=== PATIENT | female | born 1995 | race Caucasian/White ===

== ENCOUNTER 2022-01-26 08:00 | Outpatient (RCR) | payer OTHER, SELFPAY ==
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
--- NOTE | 2022-01-26 11:00 | BH.SGPN.GN ---
Behaviors/Verbalizations/Mental Status: []Pt alert and oriented, casually dressed and groomed. Eye contact good. Motor activity appropriate. Speech within normal limits. Affect constricted, mood depressed. Thoughts linear, logical, no signs of hallucinations or delusions. Client Response/Progress/Benefit: []Pt responded well to session as evidenced by Pt listening attentively to others and providing strategies during discussion.? Pt identified personal warning signs for crisis and gained further awareness of earliest warning signs. Pt created a crisis action plan to help Pt better manage warning signs for crisis. Pt?s action plan included warning signs such as racing thoughts, not taking care of responsibilities, and increased risk taking. Pt?s coping skills included 5-senses, going for walks, washing her face, breaking things down into ?extremely small steps? and writing out the pros and cons. Pt appeared to benefit from creating a crisis action plan and increasing self-awareness. Pt to continue IOP tx to prevent decompensation, increase use of healthy coping skills, and improve overall functioning. Narrative Note: []
[2022-01-26 11:20] VITALS: BP 138/80; PULSE 63
--- NOTE | 2022-01-26 12:39 | BH.DR.ITP ---
Initial Treatment Plan Patient Information Visit Information: ADMISSION DATE: EXPECTED LOS: 4-6 weeks Problems/Symptoms Problem #1:: Mood instability Symptom:: Sadness, irritability, bereavement, hopelessness, worthlessness, hypersomnia, low energy, decreased concentration, guilt, recent passive thoughts of , Problem #2:: Anxiety Symptom:: Worry, rumination, panic attacks, flashbacks, reexperiencing, hypervigilance
--- NOTE | 2022-01-27 10:15 | BH.SGPN.GN ---
Behaviors/Verbalizations/Mental Status: []Pt alert and oriented, neatly dressed and groomed. Eye contact good. Motor activity appropriate. Speech within normal limits. Affect constricted, mood depressed. Thoughts linear, logical, no signs of hallucinations or delusions. Client Response/Progress/Benefit: []Pt responded well to session AEB contributing to discussion, taking notes, and listening attentively to others. Group discussed the benefits of managed anger and anger as a secondary emotion. Pt shared perspective on negatives from acting out in anger as stress and more mental health issues.? Pt completed anger iceberg worksheet, reporting outward personal signs of anger as being sarcastic and yelling. Identified underlying emotions that contribute to anger including confusion, guilt, and insecurity. ?Appeared to benefit from increased knowledge of the underlying emotions that impact anger and increased self-awareness of the internal and external consequences of anger. Will continue IOP tx to prevent decompensation, improve overall functioning, and reduce the use of unhealthy coping skills. Narrative Note: []
--- NOTE | 2022-01-28 15:48 | BH.MDN ---
Multi-Disciplinary Note - Note 60-min Individual Time Started:: 09:30 Date: 01/28/22 Time Stopped:: 10:30
--- NOTE | 2022-01-31 09:10 | BH.SGPN.GN ---
Behaviors/Verbalizations/Mental Status: []Pt alert and oriented, casually dressed and groomed, appearing unbathed. Eye contact fair to good. Motor activity appropriate. Speech within normal limits. Affect constricted, mood depressed. Thoughts linear, logical, no signs of hallucinations or delusions. Reviewed pt?s symptom tracker, no risk for suicidal ideation, plan, or intent as of 01/31/22. Client Response/Progress/Benefit: []Pt responded well to session AEB pt sharing thoughts and feelings, as well as listening attentively to others. Pt stated current mental health wins include working at a [employer] over the weekend and talking with her brother. Pt went on to indicate struggling with the grieving process over the past month and that it was helpful to speak with her brother about this as they do not usually discuss emotions. Shared that self-care has been difficult to make time for as she aids her family in making arrangements. Discussed trying to spend more time on mindfulness. Progress noted with pt reporting improved awareness and skill application. Pt to continue IOP to increase healthy decision making, stabilize mood, and prevent decompensation. Narrative Note: []
--- NOTE | 2022-01-31 10:10 | BH.SGPN.GN ---
Behaviors/Verbalizations/Mental Status: []Client alert and oriented, casually dressed and groomed. Eye contact fair. Motor activity appropriate. Speech within normal limits. Affect congruent, mood euthymic. Thoughts linear, logical, no signs of hallucinations or delusions. Client Response/Progress/Benefit: []Client receptive to session AEB contributing to discussion and listening attentively to others. Taking notes. Worked with group to brainstorm the positive and negative aspects of stress on physical and mental health. Group did well to identify the benefits of stress as well as the impact of distress on performance and mental health. Client identified their personal top stressors as: being supportive to family while grieving brother's , questioning of medications, and feeling distanced from people in her life. Client reports when the stress overflows client reacts with irritability and avoidance by throwing self into unrelated topics to distract self from what needs done. Client seemed to benefit from increased awareness of current stressors and impact stress has on mental health. Recommended to continue IOP tx to stabilize moods, increase confidence and prevent decompensation.
--- NOTE | 2022-01-31 11:20 | BH.SGPN.GN ---
Behaviors/Verbalizations/Mental Status: []Pt alert and oriented, casually dressed and groomed. Eye contact good. Motor activity appropriate. Speech within normal limits. Affect congruent, mood calm. Thoughts linear, logical, no signs of hallucinations or delusions. Client Response/Progress/Benefit: []Pt participated at times during group discussions. Attentive during psychoeducation on the 4 A's of Coping with Stress (Avoid, Alter, Adapt, Accept). Participated in experiential activity in which group members had to utilize stress management skills in the moment. Pt did well to problem-solve and express ideas to peers. Pt engaged in review of the 4 A?s and picked wanting to work on adapting how she views success and challenge her expectations of self. Benefited from processing in the moment stress management strategies and identifying new ways to cope with stress. Will continue in IOP tx to prevent decompensation, increase healthy boundaries and use of healthy coping skills, and improve mood stability. Narrative Note: []
--- NOTE | 2022-02-02 09:11 | BH.COMM ---
Communication Note - Communication with Client Communication Note: Client called to reschedule IOP from today to tomorrow.
--- NOTE | 2022-02-03 09:05 | BH.SGPN.GN ---
Behaviors/Verbalizations/Mental Status: [] Eye contact is good. Motor activity is appropriate. Appearance is casual. Speech is Appropriate. Mood is depressed. Affect is flat. Thoughts are linear and logical. No evidence of psychosis. Reviewed daily check in sheet and pt reports 1/5 for suicidal thoughts and 1/5 for intent. Client Response/Progress/Benefit: [] Pt participated when prompted. Attentive. Daily symptom tracker notes 4/5 for depression, 3/5 for anxiety. 3/5 for anger, and 2/5 for self-harm urges. Pt reports that she feels ?disconnected today?. Mental health win was ?taking time to get to know? a support in her life. She has been avoiding certain people, not b/c they are unhealthy, but rather b/c seeing them reminds her of her recently brother. She did not elaborate much on what is causing her to feel disconnected however reports being overwhelmed with a great deal of emotions. Benefited from group support, encouragement, and feedback. Will continue in IOP to maintain safety, stabilize mood, and prevent decompensation. Narrative Note: []
--- NOTE | 2022-02-03 10:10 | BH.SGPN.GN ---
Behaviors/Verbalizations/Mental Status: []Pt alert and oriented, neatly dressed and groomed. Eye contact good. Motor activity appropriate. Speech within normal limits. Affect congruent, mood dysthymic Thoughts linear, logical, no signs of hallucinations or delusions. Client Response/Progress/Benefit: []Pt responded well to session AEB taking notes throughout and listening attentively to others. Pt was attentive throughout group activity identifying famous individuals and how they overcame failure to be successful. Pt helped group identify how fear of failure can impact mental health and relationships. Pt personally identified it leads to avoiding putting her art out into the world and finishing school. Pt participated in experiential activity and pt made the connect of progress requiring re-evaluating and working with supports. Appeared to benefit from increased knowledge of fear of failure. ?Will continue IOP tx to prevent decompensation, improve overall functioning, and gain healthy supports. Narrative Note: []
--- NOTE | 2022-02-03 11:10 | BH.SGPN.GN ---
Behaviors/Verbalizations/Mental Status: []Pt alert and oriented, neatly dressed and groomed. Eye contact good. Motor activity appropriate. Speech within normal limits. Affect constricted, mood depressed. Thoughts linear, logical, no signs of hallucinations or delusions. Client Response/Progress/Benefit: []Pt responded well to session, engaged in the experiential activity and attentive throughout group processing. Pt reported fear of failure has kept pt from finishing school and putting her art out into the world. Pt completed fear of failure worksheet and was able to identify thoughts and behaviors that reinforce personal fear of failure including procrastinating, negative views of self, and distorted thinking patterns. Pt participated in small group discussion regarding strategies to overcome fear of failure. Identified wanting to work on getting an outside perspective ?either from myself or others? to combat shame and negative thinking. Appeared to benefit from increased knowledge of strategies to combat fear of failure and gaining self-awareness. Pt will continue IOP tx to prevent decompensation, increase healthy supports, and increase self-confidence. Narrative Note: []
--- NOTE | 2022-02-03 20:46 | BH.MDN ---
Multi-Disciplinary Note - Note 60-min Individual Time Started:: 12:15 Date: 02/03/22 Purpose of session/treatment goals addressed:: Purpose of session was to address goals 1 and 2 from MTP. Eye Contact:: Fair Motor Activity:: Restless Appearance:: Casual Speech:: Appropriate, Tangential - at times Mood:: Anxious, Other - tearful at times Affect:: Congruent Thoughts:: Logical, Racing - at times, No evidence of hallucinations/delusions noted Staff Interventions:: thought challenging, psychoeducation on: - addiction, CBT techniques, mindfulness skills, strengths perspective, goal setting, taught coping skills Client Response:: Client reported overall her week has been going well. Client stated she continues to struggle with feeling guilty about doing things for herself. Client reported she did go on a walk and tried to be more mindful and in the moment. Stated she didn't feel guilty when she went on a walk at her parents house. However, she stated there were a couple times she had thought about doing things she wanted but didn't because felt like she should hang out with her boyfriend. Client reported she wants to keep working on being able to do things that she likes independently without feeling guilty. Client shared continues to have worries about if her boyfriend will maintain sobriety once he is no longer required to have drug tests and be on curfew due to recent legal issues. Client connected with psychoeducation about addiction. With therapist assistance able to challenge distorted thoughts it was her fault her boyfriend had been using drugs and that it's her responsibility to keep him from overdosing. Discussed importance of taking time to Time Stopped:: 13:10
--- NOTE | 2022-02-04 10:00 | BH.SGPN.GN ---
Behaviors/Verbalizations/Mental Status: [] Eye contact is good. Motor activity is appropriate. Appearance is casual. Speech is Appropriate. Mood is depressed. Affect is congruent. Thoughts are linear and logical. No evidence of psychosis. Client Response/Progress/Benefit: [] Pt participated at times during the group discussion. Attentive during psychoeducation. Active during experiential activity. Participated during interactive discussion on aspects of fixed mindset. Group identified several aspects of fixed mindset which included; inflexible, belief that one cannot grow, absolute thinking, and all of one's skills, traits, and behaviors are set in stone and can't change. Group then identified examples of fixed thinking which included; Im never going to get better, I'm always going to be like this, I'm going to fail, I'm broken and will always be like this. Pt did well in experiential activity in which they were given a seemingly impossible task and were asked to identify fixed thoughts that arose. Benefited from increased understanding of fixed mindsets and how they can impact mental health. Will continue in IOP to prevent decompensation, increase healthy coping, and stabilize mood. Narrative Note: []
--- NOTE | 2022-02-04 15:57 | BH.MDN ---
Multi-Disciplinary Note - Note 30-min Individual Time Started:: 11:30 Time Stopped:: 12:00
--- NOTE | 2022-02-07 10:10 | BH.SGPN.GN ---
Behaviors/Verbalizations/Mental Status: []Client alert and oriented, neatly dressed and groomed. Eye contact good. Motor activity appropriate. Speech normal. Affect congruent, mood anxious and depressed, Thoughts linear, logical, no signs of hallucinations or delusions. Client Response/Progress/Benefit: []Client responded well to session AEB client listening attentively to others and providing input during group discussion on the pay offs and costs of the different communication styles. Client recognizes negative impact on her mood and ability to self regulate when she doesn't use healthy communication style. Client did well in the activity to be assertive and provide suggestions to the group. Recognizes if group couldn?t actively listen to one another in the activity, they wouldn?t have been successful. Attentive during psychoeducation on interpersonal DBT skill [place]. Client set a goal to work on being more mindful with goal of trying to remain mindful of her priorities in a situation or discussion. Client seemed to benefit from increasing awareness of healthy strategies to improve communication. Client will continue IOP tx to improve successful communication, regulate emotions, and prevent decompensation. Narrative Note: []
--- NOTE | 2022-02-07 15:58 | BH.MDN ---
Multi-Disciplinary Note - Note 60-min Individual Time Started:: 12:15 Date: 02/07/22 Time Stopped:: 13:15
--- NOTE | 2022-02-09 09:02 | BH.SGPN.GN ---
Behaviors/Verbalizations/Mental Status: []Pt alert and oriented, casually dressed and groomed. Eye contact good. Motor activity appropriate. Speech within normal limits. Affect congruent, mood euthymic. Thoughts linear, logical, no signs of hallucinations or delusions. Reviewed pt?s symptom tracker, risk for suicidal ideation reported as 1/5 which is within pt baseline, denies plan, or intent as of 02/09/22 Client Response/Progress/Benefit: []Pt responded well to session, attentive and reports connecting with feedback from supports throughout. Pt reports feeling ?suspended this morning as pt shared she worried about her boyfriend?s upcoming court date. Shared struggling with ruminating thoughts related to this but was able to catch herself and challenge them. Indicated this as progress, as in the past she would allow herself to spiral into negativity. Identified going to the [employer] as an additional win. Pt appeared to benefit from support of the group environment. Pt to continue IOP tx to continue to improve stress management skills, reduce depression, and further improve mood stability. Narrative Note: []
--- NOTE | 2022-02-09 10:10 | BH.SGPN.GN ---
Behaviors/Verbalizations/Mental Status: []Pt alert and oriented, neatly dressed and grooming appears tended to. Eye contact good. Motor activity appropriate. Speech within normal limits. Affect constricted, mood dysthymic. Thoughts linear, logical, no signs of hallucinations or delusions. Client Response/Progress/Benefit: []Pt engaged throughout AEB taking notes, listening attentively, and providing input throughout. Attentive during psychoeducation and discussed the importance of goal-setting with the group. Group identified potential benefits of having goals to include: they motivate, increase self-confidence, promote personal growth, and give direction. Group also worked together to identify barriers to goal-setting which included; high expectations, negative thinking, and lack of motivation. Pt identified personal barriers to include negative thinking and lack of motivation. Benefited from increased awareness of benefits and barriers to goal-setting. Pt will continue in IOP to prevent decompensation, increase self-care, and reduce intensity of symptoms. Narrative Note: []
--- NOTE | 2022-02-09 12:05 | PCM.BH.PN_ITS ---
Progress Note Progress Note: History of Present Illness/Interim History: [] The patient is a 26-year-old single female with a history of bipolar 1 disorder, anxiety disorder, alcohol use disorder (in partial remission x4-month) and methamphetamine use disorder (sober x9 months). I last saw the patient 2 weeks ago and she states that she is feeling better and that her anxiety has decreased in intensity. She says she is having much less panic attacks than before and she says that it is a lot easier for her to drive herself without being too anxious to drive. She states that she still has some intrusive thoughts about maybe her boyfriend is cheating on her but she states that these last only an hour here there and they are less than before and she is aware that they are probably irrational. She also is less irritable. She denies passive thoughts of , suicidal ideation, homicidal ideation, plan for suicide, hallucinations or delusions. She still gets some irritable episodes but they last a few hours only but she is still having them on a regular basis about 4 times per week. She is tolerating her medications well and has no side effects from them except possibly a little fatigue since the Vraylar was started. Current Psychiatric Medications: [Vraylar 1.5 mg p.o. daily after dinner (on this for 8 days); Lamictal 100 mg p.o. daily] Mental Status Examination: [] The patient is a 26-year-old female who appears normal for stated age and is casually dressed and groomed with good hygiene. She is alert and oriented to person place and time and ambulatory with a normal gait. She is cooperative during the interview and has no psychomotor agitation or retardation. Eye contact is good and speech is normal rate and rhythm and fluent without pressure. Mood is somewhat depressed and anxious still. Affect is full and normal. Thought process is goal-directed and organized. Thought content: There is no evidence of passive thoughts of , suicidal ideation, homicidal ideation, hallucinations or delusions or kindra. Reality testing is intact. Intelligence is above average. Judgment is intact. Insight is fair. Impulsivity is moderate. Diagnoses: [] 1. Bipolar 1 disorder, most recent episode depressed, moderate (F31.32) 2. Anxiety disorder, unspecified 3. Remote history of disordered eating 4. Alcohol use disorder in partial remission for 4 months 5. Methamphetamine and crack substance abuse order, sober x9 months 6. Primary support issues Plan: [] The patient will continue the IOP program at [facility] as the structure, support, education and group therapy will hopefully prevent worsening of the patient's symptoms which could require hospitalization. She felt safe during the interview and if it anytime she does not feel safe she will let us know or go to the emergency room. The risks, possible complications side effects and options regarding the meds were discussed with the patient again and she understands and accepts them. She understands that Vraylar and Lamictal may increase the side effects from the medications if they are given together but she has not noticed this and because she is only on 100 mg of Lamictal and a relatively low-dose of Vraylar we will continue to watch but feel that this potential interaction is probably not going to be clinically significant. She will continue to follow-up with her outpatient providers and she agrees to increase her Vraylar to 3 mg p.o. daily in order to get better control of her bipolar disorder. No other medication changes were made. Prescription was sent in for Vraylar 3 mg p.o. daily. I will see the patient in follow-up in 2 weeks or sooner if needed.
--- NOTE | 2022-02-11 09:02 | BH.SGPN.GN ---
Behaviors/Verbalizations/Mental Status: []Eye contact fair, casually dressed, motor activity appropriate, speech normal rate and tone, mood anxious, congruent affect, thoughts linear and intact, no evidence of delusions or hallucinations. Reviewed pt's symptom tracker, no indication of suicidal ideation or intent. Client Response/Progress/Benefit: [] Client respond well to session as evidenced by her listening attentively to others and openly sharing thoughts and feelings. Client identified mental positive as her partner not going to custodial yesterday which has relieved significant stress for her. Client reported she utilized several healthy coping skills to manage her anxiety while in Court waiting for the outcome of her partner's case. Client stated current stressor as continued lingering anxiety and fear about what change will happen since her partner will no longer have certain legal restrictions. Client seemed to benefit from support from peers. Client to continue IOP to stabilize mood, increase confidence, and prevent decompensation. Narrative Note: []
--- NOTE | 2022-02-11 10:10 | BH.SGPN.GN ---
Behaviors/Verbalizations/Mental Status: []Eye contact is good. Motor activity is appropriate. Appearance is casual. Speech is Appropriate. Mood is depressed and anxious. Affect is congruent. Thoughts are linear and logical. No evidence of psychosis. Client Response/Progress/Benefit: []Pt was an active participant in group discussions. Attentive during psychoeducation and participated in interactive discussions in which group defined self-care, discussed the benefits to self-care, and identified common myths surrounding self-care. Pt shared that ?self-care can help you to feel more present and set better boundaries?. Group identified that self-care myths include; self-care is selfish, self-care is just personal hygiene, self-care should be fun, self-care is too time consuming, and I don?t deserve it. Pt and peers broke into smaller group and worked together to bust the myths associated with self-care. Benefited from increased awareness of the self-care and its benefits. Progress noted in increased ability to engage in healthy decision making and reduce unhealthy coping. Will continue in IOP to prevent decompensation, increase emotion regulation skills and mood stability, and improve functioning. Narrative Note: []
--- NOTE | 2022-02-11 17:05 | BH.MDN ---
Multi-Disciplinary Note - Note 60-min Individual Time Started:: 11:30 Date: 02/11/22 Purpose of session/treatment goals addressed:: Purpose of session was to address goals 1 and 2 from MTP. Eye Contact:: Fair Motor Activity:: Restless Appearance:: Casual Speech:: Appropriate Mood:: Anxious, Other - tearful at times Affect:: Congruent Thoughts:: Linear, Logical, No evidence of hallucinations/delusions noted Staff Interventions:: thought challenging, psychoeducation on: - codependency, CBT techniques, mindfulness skills, strengths perspective, goal setting Client Response:: Client reported she is feeling relief today since her boyfriend's court date went very well yesterday. Client stated she is slightly anxious though because he has less restrictions which increases fear he will go back to using drugs. Client receptive to learning about codependency. Client connected with characteristics of codependency and the impact can have on mental health. Client agreed she was trying to control her boyfriends every move out of fear he would overdose. Client stated this constant feeling of wanting to be there to help him led her to engage in self destructive behaviors. Client reported she notes signficant improvement in their relationship now that her boyfriend is sober. Client stated she still is having a difficult time trusting him due to past behaviors. Client recognizes if she can't get to a place in which she trusts him it will be hard for the relationship to move forward in a healthy way. Client connected with concept of detachment in codependent no more book. Client stated she believes current relationship can be healthy and they can stay together if they work on being more independent. Client reported she has been working on her homework of identifying her specific symptoms when she is manic/hypomanic, depressed and stable. Client reported she is having a harder time identifying how she is when stable. Recognizes this could be due to living in chaos for the last couple of years and not feeling very stable. Client stated she hasn't followed through with goal of going on a hike and taking pictures of nature items. Stated she knows she needs to put more effort into being mindful/present and engaging in self-care. Client reported engaging in self-care more consistently will help combat negative thoughts she needs to be doing things with/for other people and feeling selfish for wanting to do things alone. Client stated she will continue to work on handout about bipolar disorder and go on a hike this weekend. Risks/Concerns:: Denies suicidal ideation, plan or intention to date. future focused. Progress Toward Goals/Plan:: Progress noted AEB client reporting improved mood stability and increased use of healthy coping skills. Client continues to struggle with racing thoughts, overthinking, and low confidence/worth. Client often reports feeling guilty for doing things that she wants to do or do things on her own. Client recognizes negative impact this has on her mental health and reports motivation to work on this. Client is to continue IOP to stabilize moods, increase us of mindfulness skills, and prevent decompensation. Time Stopped:: 12:30
--- NOTE | 2022-03-24 10:10 | BH.SGPN.GN ---
Behaviors/Verbalizations/Mental Status: [] Client alert and oriented, casually dressed and groomed. Eye contact good. Motor activity appropriate. Speech within normal limits. Affect congruent, mood content. Thoughts linear, logical, no signs of hallucinations or delusions Client Response/Progress/Benefit: [] Client responded well to session AEB sharing and listening attentively to others. Client was engaged throughout group discussion defining fixed mindset and what it can look like. Group identified several aspects of fixed mindset which included; negative outlook, fear of failing, absolute thinking, and inability to grow your intelligence. Group discussed how fixed mindset affects mental health and why we use fixed thoughts. Client participated in experiential activity encouraging client to find solutions to a seemingly impossible task. Client identified personal fixed thoughts in session which included ?I will always end up self- destructing and I will end up just letting people down.? Client gained insight to how these fixed thoughts reduce motivation and keep client stuck in unhealthy cycles. Client appeared to benefit from increased knowledge of fixed mindset and self-awareness of personal fixed thoughts. Will continue IOP treatment to utilize positive coping skills, identify cognitive distortions and utilize skills to manage symptoms of anxiety. Narrative Note: []
--- NOTE | 2022-03-24 11:10 | BH.SGPN.GN ---
Behaviors/Verbalizations/Mental Status: [] Client alert and oriented, casually dressed and groomed. Eye contact good. Motor activity appropriate. Speech within normal limits. Affect congruent, mood euthymic Thoughts linear, logical, no signs of hallucinations or delusions. Client Response/Progress/Benefit: [] Client engaged during activity and discussion AEB providing some input, connecting with peers, as well as taking notes throughout. Client did well to engage as group worked on identifying characteristics and benefits of adopting a growth mindset. Worked with fellow participants in reframing the example fixed thoughts into growth mindset thoughts. Reframed personal fixed thought of ?I will just end up letting people down? with growth mindset thought of ?I can try again in the future? Benefitted from discussing benefits of growth mindset and brainstorming strategies for prompting growth-mindset. Will continue IOP tx to improve self-care consistency and maintain mood stability. Narrative Note: [] Narrative Note: []
== END 2022-02-11 23:59 ==
LOC: BHIOP 08:00
PROVIDERS: PCP Family Medicine; Referring Provider Psychiatry & Neurology Psychiatry; Visit Provider Psychiatry & Neurology Psychiatry
DX: F31.32 Bipolar disorder, current episode depressed, moderate (principal); F41.9 Anxiety disorder, unspecified; F50.9 Eating disorder, unspecified; F14.11 Cocaine abuse, in remission; F11.11 Opioid abuse, in remission
CPT/HCPCS: S9480; 90832; 90837; 90853

== ENCOUNTER 2022-02-14 09:00 | Outpatient (RCR) | payer OTHER, SELFPAY ==
[2022-02-12 01:48] VITALS: BP 138/80; PULSE 63
--- NOTE | 2022-02-15 09:05 | BH.SGPN.GN ---
Behaviors/Verbalizations/Mental Status: [] Eye contact is good. Motor activity is appropriate. Appearance is casual. Speech is Appropriate. Mood is depressed. Affect is flat. Thoughts are linear and logical. No evidence of psychosis. Reviewed daily check in sheet and pt reports 2/5 for suicidal ideations and 0/5 for intent. Client Response/Progress/Benefit: [] Pt participated at times during the group discussion. Attentive. Daily symptom tracker notes 4/5 for depression and anxiety; 3/5 for anger and self-harm urges. Mental health wins include utilizing skills to work through anxiety producing situation. She discussed the situation and the skills used. Emotion for today is ?heavy? which she states is mainly reported to her depression. Reported side effects from medication which led her to stop her Vraylar last a couple days ago. She reports that since then the side effect has resolved. She admits that she often ?plays doctor? with her medications. Group provided feedback and support. Pt has plans to utilize self-care this afternoon and appears motivated to utilize skills to mange distress. Benefited from group support, encouragement, and feedback. Will continue in IOP to maintain safety, stabilize mood, and improve function. Narrative Note: []
--- NOTE | 2022-02-15 10:05 | BH.SGPN.GN ---
Behaviors/Verbalizations/Mental Status: []Eye contact is good. Motor activity is appropriate. Appearance is casual. Speech is Appropriate. Mood is depressed and anxious. Affect is congruent. Thoughts are linear and logical. No evidence of psychosis. Client Response/Progress/Benefit: []Pt was an active participant in group discussions. Attentive during psychoeducation. Participated with peers in experiential activity. Pt participated in an interactive discussion with peers in which they worked together to define what coping skills are. Group then identified unhealthy coping skills which included; lashing out, negative self-talk, isolating, substance abuse, avoidance, sleeping to escape, and distracting self with other?s problems. Psychoeducation on internal vs external coping skills. After experiential activity pt identified that A strong base of internal and external coping skills is helpful when one of these areas is unavailable or struggling. Benefited from increased awareness and education the benefits of have both internal and external coping skills. Will continue in IOP to maintain safety, prevent decompensation, and to stabilize mood. Narrative Note: []
--- NOTE | 2022-02-15 11:07 | BH.SGPN.GN ---
Behaviors/Verbalizations/Mental Status: []alert and oriented, casually dressed and groomed. Eye contact fair to good. Motor activity appropriate. Speech within normal limits. Affect constricted, mood anxious and depressed. Thoughts linear, logical, no signs of hallucinations or delusions. Client Response/Progress/Benefit: []Pt responded well to session AEB taking notes and providing input and examples throughout. Group discussed the different categories of coping skills which included distraction, emotional release, grounding, self-love, and thought challenging. Pt created a coping skill menu identifying various skills to try in each category. Pt?s coping skill menu included: going outside, earthing, singing, dating ?myself,? and thinking in the [place]ungu[place].? Appeared to benefit from increasing repertoire of healthy coping skills. Pt continues to struggle with grief and managing her negative thinking patterns, but she is consistent and engaged. Pt will continue IOP tx to combat distortions, increase self-care and boundaries, and improve daily functioning. Narrative Note: []
--- NOTE | 2022-02-15 16:37 | BH.MDN ---
Multi-Disciplinary Note - Note 60-min Individual Time Started:: 12:10 Date: 02/15/22 Purpose of session/treatment goals addressed:: Purpose of session was to address goals 1 and 2 from MTP. Eye Contact:: Fair Motor Activity:: Appropriate Appearance:: Casual Speech:: Appropriate Mood:: Anxious Thoughts:: Logical, No evidence of hallucinations/delusions noted Staff Interventions:: thought challenging, CBT techniques, strengths perspective, goal setting, taught coping skills Client Response:: Client reported she stopped taking her Vraylar medications 2 to 3 days ago because noticed it was making her restless and felt the need to constantly move her mouth. Client reported she has noticed since being off the medication her anxiety has increased. Client reported she has been feeling more floaty and spaced out recently. Client reported her lamictal was increased recently and seems to be responding well to that. Client reported having increased stress within relationship. Client stated her boyfriend being off probation has triggered increased anxiety that he will starting using drugs again. Client discussed recent conflict with boyfriend. Discussed with therapist other coping skills that could be used in the moment to manage distress like grounding, walking away, and breathing. Client struggling with negative thought patterns, open to help from therapist to challenge thoughts. Client agreeable to focus on self-care in the next couple of days. Risks/Concerns:: Denies suicidal thoughts, plan or intention to date. feels able to maintain safety. Progress Toward Goals/Plan:: Client reporting increase in anxiety since stopping one of her medications. Also noted increased in depression which could be attributed to recent interpersonal relationship stressor. Client is continuing to have a difficult time with managing negative thought patterns and anger. Client to continue IOP to increase consistent use of healthy coping, challenge distorted thoughts, and prevent decompensation. Time Stopped:: 13:05
--- NOTE | 2022-02-17 10:10 | BH.SGPN.GN ---
Behaviors/Verbalizations/Mental Status: []Pt alert and oriented, casually dressed and hair was unkempt. Eye contact good. Motor activity appropriate. Speech within normal limits. Affect constricted, mood depressed. Thoughts linear, logical, no signs of hallucinations or delusions. Client Response/Progress/Benefit: []Pt was an active participant AEB contributing to discussion, taking notes, and engaging in group activity. Connected with the topic of pitfalls and listened to group discussion on barriers that prevent from choosing a healthier path to mental wellness. Group worked together to identify examples of personal pitfalls which included; resentment/anger, shutting down, low motivation, making excuses, denial, distortions, and unhealthy coping. Pt identified negative thinking and not taking medications as personal pitfalls that have inhibited progress in the past. Pt benefited from group as pt learned to better identify potential barriers to improving mental health symptoms. Pt will continue IOP tx to prevent decompensation, improve mood stability, and increase self-compassion. Narrative Note: []
--- NOTE | 2022-02-17 17:26 | BH.MDN ---
Multi-Disciplinary Note - Note 60-min Individual Time Started:: 11:25 Date: 02/17/22 Purpose of session/treatment goals addressed:: Purpose of session was to address goals 1 and 2 from MTP. Eye Contact:: Fair Motor Activity:: Appropriate, Restless - at times Appearance:: Casual Speech:: Appropriate Mood:: Anxious Affect:: Congruent Thoughts:: Linear, Logical, No evidence of hallucinations/delusions noted Staff Interventions:: thought challenging, CBT techniques, mindfulness skills, strengths perspective, goal setting, other - relationship issues Client Response:: Client responded well to session AEB openly sharing thoughts and feelings. Client reported the last couple of days she has noticed her feelings are not ruling her conversations as frequently. Client stated she has been doing better with communicating to her boyfriend what she needs instead of allowing anger to rule the conversation. Client stated she is still having an odd sensation that she needs to lay down out of fear she is going to pass out or have a medical emergency. Client reported she does think her anxiety is impacting this feeling. Client open to using calming and mindfulness skills more frequently throughout the day to help manage these thoughts. Client agreed it could be helpful to listen to either a podcast or uplifting music while she is driving to help distract her since this feeling of needing to lay down has happened several times while driving. Cecilio expressed overthinking about her medications and processed her negative thoughts with therapist. Client stated she knows medications are important for her mood stability and needs to keep reminding herself of the potential consequences if she were to get off her medications. Risks/Concerns:: Denies suicidal ideation, plan or intention. future focused. Progress Toward Goals/Plan:: Progress noted with client reporting improved emotion regulation and use of skills to help her communicate more effectively with others. Client continues to struggle with anxious thoughts about her medications which has resulted in client making medication decisions on her own. Client logically seems to recognize the need for medications to help stabilize mood and is doing better with taking her medications consistently compared to when first starting IOP. Client to continue IOP to increase consistent use of healthy coping skills, improve confidence, and prevent decompensation. Time Stopped:: 12:20
--- NOTE | 2022-02-21 09:05 | BH.SGPN.GN ---
Behaviors/Verbalizations/Mental Status: [] Client alert and oriented, casually dressed and groomed. Eye contact normal. Motor activity appropriate. Speech within normal limits. Affect congruent, mood anxious and euthymic. Thoughts linear, logical, no signs of hallucinations or delusions. Reviewed client?s symptom tracker, no risk for suicidal ideation, plan, or intent as of 02/21/22 Client Response/Progress/Benefit: [] Client responded well to session, providing encouragement and being attentive to peers. Client reports feeling revived this morning with indicating that she has been challenging her social anxiety with positive outcomes. Client shared how she went to lunch with and old friend and went to a concert in [place]. Client shared her stressor as wanting to be around her family, but not wanting to address the feelings that come with it due to reminders of her brother's when going over there. Client appeared to benefit from reflecting on her growth and receiving support from peers. Client will continue IOP tx to increase self-worth, reduce social anxiety, and increase overall functioning. Narrative Note: []
--- NOTE | 2022-02-21 10:10 | BH.SGPN.GN ---
Behaviors/Verbalizations/Mental Status: [] Client alert and oriented, casually dressed and groomed. Eye contact good. Motor activity appropriate. Speech within normal limits. Affect congruent, mood euthymic. Thoughts linear, logical, no signs of hallucinations or delusions. Client Response/Progress/Benefit: [ ] Client responded well to session, attentive and providing input throughout. Participated in discussion of things that can keep people feeling trapped or stuck in life including; avoidance, unhealthy coping, isolation, inconsistent boundaries, and surrounding self with toxic people. Group discussed the connection between thoughts, emotions, and behaviors as well as how negative thinking can keep a person stuck. Client attentive during psychoeducation on maintenance cycles. Client able to identify negative thoughts that have kept client stuck which included ?being myself hurts others and I'm a downer. Client identified these thoughts lead her to push others away and lash out. Appeared to benefit from gaining awareness of how negative thoughts reinforce mental health symptoms and keep people stuck. Will continue IOP tx to prevent decompensation,challenge negative thinking, and increase overall functioning. Narrative Note: []
--- NOTE | 2022-02-21 11:10 | BH.SGPN.GN ---
Behaviors/Verbalizations/Mental Status: [] Client alert and oriented, casually dressed and groomed. Eye contact good. Motor activity appropriate. Speech within normal limits. Affect congruent, mood euthymic and anxious. Thoughts linear, logical, no signs of hallucinations or delusions. Client Response/Progress/Benefit: [] Client responded well to session, contributing to discussion and providing supportive feedback. Client identified a negative thought that has kept her stuck. Client's thought was no one can love me. Client reported when she thinks this way, she pushes people away and does not give them trust. Client worked to reframe the thought by finding more rational, realistic ways to look at the thoughts and then processed within group setting. Client reframed the thought to ?nobody can know every single part of you.? Client stated she will use positive self-talk to continue challenging negative self-talk. Client appeared to benefit from practicing challenging negative thinking. Client will continue IOP tx to promote use of healthy coping skills and increase overall functioning. Narrative Note: []
--- NOTE | 2022-02-23 10:05 | BH.SGPN.GN ---
Behaviors/Verbalizations/Mental Status: [] Client alert and oriented, neatly dressed and groomed. Eye contact good. Motor activity appropriate. Speech within normal limits. Affect congruent, mood euthymic. Thoughts linear, logical, no signs of hallucinations or delusions. Client Response/Progress/Benefit: [] Client was an active participant in group discussions. Attentive during psychoeducation on 4 types of conflict styles (Competing, Collaborating, Avoiding, and Accommodating). Worked with group to define conflict and identify how conflict is helpful. With peers identified barriers to addressing or managing conflict which included: wanting to avoid difficult feelings/emotions, lack of communication skills, and cognitive distortions. Client believes they use the accommodating style the most. Client shared this style causes them to have some positive experiences due to them usually avoiding in the past. Benefited from group due to increase insight and awareness of benefits to conflict, conflict styles, and obstacles to managing conflict. Will continue in IOP to increase overall functioning, gain healthier core beliefs, and increase healthy coping skills. Narrative Note: []
--- NOTE | 2022-02-23 12:09 | PCM.BH.PN ---
Progress Note Progress Note: History of Present Illness/Interim History: [] The patient is a 26-year-old female with a history of bipolar 1 disorder, anxiety, alcohol use disorder in partial remission x4 months and methamphetamine use disorder (full remission x9 months). Patient is seen in follow-up at the [facility] behavioral health IOP program and I last saw the patient 2 weeks ago and at that time the Vraylar dose was increased to 3 mg p.o. daily. The patient states that after increasing the Vraylar she felt feelings of restlessness and an inability to sit still which she looked online and diagnosed as akathisia. She also felt side effects of wanting to grind her teeth. For these reason she discontinued the Vraylar and the side effects resolved after a day or 2. On her own she increased her Lamictal to 150 mg p.o. daily and feels that this has been somewhat beneficial and she has tolerated this well. Her depression is much less now and she is doing less rumination. Her anxiety persists and she feels some of this might be because she is working on some trauma issues and this causes anxiety. She denies any drug use. The patient still has some stress in her relationship with her boyfriend and is still grieving her brother's and her boyfriend overdosing. She denies passive thoughts of , suicidal ideation, homicidal ideation, plan for suicide, hallucinations hallucinations, delusions or symptoms of kindra. The patient states that she took BuSpar in the past for anxiety and it helped and requests a prescription for this. Current Psychiatric Medications: [] Vraylar discontinued 2 weeks ago. Lamictal 150 mg p.o. daily (dose increased 2 weeks ago). Mental Status Examination: [] Patient is a 26-year-old female who appears normal for stated age and is casually dressed and groomed with good hygiene. She is ambulatory with a normal gait and alert and oriented to person place and time. She is cooperative and pleasant during the interview and has no psychomotor agitation or retardation. Eye contact is good and speech is normal rate and rhythm and fluent without pressure. Mood is anxious and mildly depressed. Affect is full and normal. Thought process is goal-directed and organized. Thought content: There is no evidence of passive thoughts of , suicidal ideation, homicidal ideation, hallucinations, delusions or kindra. Reality testing is intact. Intelligence is above average. Judgment is intact. Insight is good. Impulsivity is moderate. Diagnoses: [] 1. Bipolar 1 disorder, most recent episode depressed, moderate (F31.32) 2. Anxiety disorder, unspecified 3. Remote history of disordered eating 4. Alcohol use disorder in partial remission for over 4 months 5. Methamphetamine and crack substance abuse order, full remission x9 months 6. Primary support issues 7. Bereavement Plan: [] The patient will continue the IOP program at [facility] as the structure, support, education and group therapy will hopefully prevent worsening of the patient's symptoms which could require hospitalization. She felt safe during the interview and if it anytime she does not feel safe she will let us know or go to the emergency room. The risks, possible complications, side effects and options regarding the medications were discussed with the patient again and she understands and accepts them. In particular the patient requests a possible trial of lithium and the risks of lithium were discussed with the patient including risks of side effects and damage to the kidney, interference with the thyroid, and the risks in and breast-feeding. The patient agrees to get a TSH and a renal panel prior to starting lithium and lab order is given to her for this. The patient agrees she needs a medication that will also prevent kindra in order to prevent her mixed episodes, 1 of which caused her only psych admission. She agrees to try BuSpar 10 mg p.o. twice a day. She also agrees to try lithium carbonate ER 300 mg p.o. nightly prescriptions were sent in for these medications. I will see the patient in follow-up in 2 weeks.
--- NOTE | 2022-02-23 17:49 | BH.TPR ---
Treatment Plan Review Date of Treatment Plan Review:: 02/23/22
--- NOTE | 2022-02-24 10:05 | BH.SGPN.GN ---
Behaviors/Verbalizations/Mental Status: [] Client alert and oriented, casually dressed and groomed. Eye contact good. Motor activity appropriate. Speech within normal limits. Affect congruent, mood euthymic. Thoughts linear, logical, no signs of hallucinations or delusions. Client Response/Progress/Benefit: [] Client was an active participant in group discussions and activity. Attentive during psychoeducation. Client along with peers were able to identify several negatives on the picture given to the group. Client and peers also identified positives in the picture and made the connect that finding positives is much more difficult.Client shared how she tends to look at the positive and personally found it harder to find the negatives. Interactive discussion on the definition of perspective, how perspective is formed, and why perspective is important in treatment. Client along with peers also identified that perspective can either motivate and encourage treatment or be a barrier to receiving help. Client along with group members came up with benefits of having a hopeful perspective for their mental health, which included feeling more encouraged, feeling less depressed, and increased motivation. Will continue in IOP to promote gains, increase overall functioning and increase use of healthy coping skills. Narrative Note: []
--- NOTE | 2022-02-24 11:05 | BH.SGPN.GN ---
Behaviors/Verbalizations/Mental Status: [] Client alert and oriented, casually dressed and groomed. Eye contact good. Motor activity appropriate. Speech within normal limits. Affect congruent, mood euthymic. Thoughts linear, logical, no signs of hallucinations or delusions. Client Response/Progress/Benefit: [] Client was attentive and contributed in small and larger group discussion. Client completed strengths exploration worksheet and identified personal strengths to include: empathy and love for learning. Client able to acknowledge how these strengths are helping her and can continue to help client in her mental health journey. Shared wanting to focus on using affirmations and learn to forgive. Benefited from identifying personal strengths and strategies for enhancing use of identified strengths. Client to continue IOP tx to promote use of healthy coping skills, decrease presenting anxiety, and reduce negative thinking patterns. Narrative Note: []
--- NOTE | 2022-02-28 10:10 | BH.SGPN.GN ---
Behaviors/Verbalizations/Mental Status: [] Client alert and oriented, casually dressed and appropriately groomed. Eye contact fair. Motor activity appropriate. Speech within normal limits. Affect congruent, mood euthymic. Thoughts linear, logical, no signs of hallucinations or delusions. Client Response/Progress/Benefit: [] Client connected with topic of anxiety and participated throughout, providing input and taking notes. Attentive during psychoeducation on different anxiety disorders and participated throughout interactive discussion defining anxiety and identifying cognitive and physiological symptoms of anxiety. Common cognitive symptoms identified by group included: ?what if thoughts?, all or nothing thinking, and predicting the future type thoughts. Physiological symptoms reported by patient included: shoulder tension, nail biting, eye strain, headaches, and heart flutter. Benefited from increased awareness and insight on anxiety and its impact. Will continue IOP tx to stabilize moods, increase utilization of healthy coping, and prevent decompensation.
--- NOTE | 2022-02-28 10:19 | BH.MDN ---
Multi-Disciplinary Note - Note 60-min Individual Time Started:: 09:15 Date: 02/28/22 Purpose of session/treatment goals addressed:: Purpose of session was to address goal 2 from MTP. Eye Contact:: Fair Motor Activity:: Appropriate Appearance:: Casual Speech:: Appropriate Mood:: Anxious Affect:: Congruent Thoughts:: Linear, Logical, No evidence of hallucinations/delusions noted Staff Interventions:: thought challenging, psychoeducation on: - fear ladder, CBT techniques, mindfulness skills, strengths perspective, goal setting Client Response:: Client reported the last two weeks have been rougher because the grief over the of her brother is starting to hit. Client stated she has been breaking down more in the last couple of weeks. Client reported her family found out the people that sold her brother the drugs that he overdosed and on. Client stated this brought up a lot of grief and negative thoughts. Client stated she has been able to allow herself to be sad and cry over her brother's . Client reported over the weekend she went camping with her boyfriend. [place] made her anxious because she was hearing odd noises. Client reported she had to stay in her car because realized the noises were coyotes. Client stated she didn't like where her boyfriend chose for them to sleep because it seemed like unnecessary risk and stress. Client reported her boyfriend has a hard time renting a campsite because doesn't like all the rules and thinks it's better to sleep somewhere that is free. Client agreed it would be helpful to identify for herself what she is comfortable with in regards to sleeping on the streets and what she isn't comfortable with anymore. Client agreed she wants to increase her stability and knows needs to put self in positions that don't create unnecessary risk and danger. Client stated anxiety has been worse the last couple of weeks with continued panic like feelings while driving. 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 Client stated feeling goes away once she is calm. Client agreed she needs to practice her mindfulness and breathing tools more often. Discussed ways to incorporate more mindfulness and grounding into her car ride. Connected to education about fear ladder. Client reported she will practice mindfulness and breathing tools each time she drives her car. Risks/Concerns:: Denies suicidal ideation, plan or intention to date. Progress Toward Goals/Plan:: Progress noted with pt reporting improved mood stability. She reports increased anxiety and grief recently. The upcoming holidays could be trigger for increased grief and sadness of her brothers . Client reports being able to feel sad about her loss instead of just numbness. Client is having increased panic like symptoms, especially when driving. Client open to practicing mindfulness tools more often. Client to continue IOP to increase consistent use of healthy coping skills, decrease anxiety and prevent decompensation. Time Stopped:: 10:10
--- NOTE | 2022-02-28 11:15 | BH.SGPN.GN ---
Behaviors/Verbalizations/Mental Status: []Pt alert and oriented, casually dressed, unkempt hair. Eye contact good. Motor activity appropriate. Speech within normal limits. Affect congruent, mood anxious. Thoughts linear, logical, no signs of hallucinations or delusions. Client Response/Progress/Benefit: []Pt was an active participant, often giving ideas and coping strategies. Reviewed safety behaviors she engages in that reinforce anxiety. Attentive during psychoeducation on mindfulness coping skills and their impact on mental health wellness. The group worked together to brainstorm anxiety reduction strategies. Pt participated as group practiced two mindfulness strategies. Pt selected using the 5-senses today to practice mindfulness. Pt seemed to benefit from increased repertoire of anxiety reduction skills. ?Pt will continue IOP tx to increase self-worth, improve mood stability, and prevent decompensation. ?? Narrative Note: []
--- NOTE | 2022-03-03 09:00 | BH.SGPN.GN ---
Behaviors/Verbalizations/Mental Status: [] Pt eye contact fair, casually dressed, motor activity appropriate, speech normal rate and tone, mood depressed, congruent affect, thoughts linear and intact, no evidence of delusions or hallucinations. Per symptom tracker client indicates no suicidal ideation, plan, or intent. Client Response/Progress/Benefit: []Pt responded well to session AEB listening attentively to others and sharing thoughts and feelings. Pt reported mental health positive as going to see her family for the first time in over a week. Pt stated she had been avoiding going over there because her grief over brother's has been hitting her harder in the last couple weeks. Client stated it was helpful to do the anxious thing because going to see her family because she ended up enjoying herself. 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 Client stated current stressor is seeing her little brother and how he is struggling with managing grief over the of their older brother. Client stated she is having some difficulty with feeling obligated to take care of him but recognizes she also needs to take care of herself. Client to benefit from support from others. Client to continue IOP to increase consistent use of healthy coping skills, challenge distorted thought patterns, and prevent decompensation. Narrative Note: []
--- NOTE | 2022-03-03 10:05 | BH.SGPN.GN ---
Behaviors/Verbalizations/Mental Status: []Pt alert and oriented, casually dressed and groomed. Eye contact good. Motor activity appropriate. Speech within normal limits. Affect congruent, mood anxious and content. Thoughts linear, logical, no signs of hallucinations or delusions. Client Response/Progress/Benefit: []Pt participated during the group discussion and attentive during psychoeducation. Participated in experiential activity. Pt contributed during interactive discussion on the consequences of unhealthy expression of emotions.? Worked with group to identify several consequences which included; pushing people away, ?exploding,? and not getting needs met. Contributing during interactive discussion on common potholes to effectively communicating. Pt identified personal ones such as making assumptions or misinterpretation. Pt was able to relate and make connections between the experiential activity and the overall topic, reported experiencing self-doubt, but managing it well. Benefited from increased awareness of how stress and emotions can impact one's ability to communicate. Will continue in IOP to prevent decompensation, continue to improve overall functioning, and maintain gains in emotional regulation skills. Narrative Note: []
--- NOTE | 2022-03-03 11:05 | BH.SGPN.GN ---
Behaviors/Verbalizations/Mental Status: []Pt alert and oriented, disheveled appearance. Eye contact good. Motor activity appropriate. Speech within normal limits. Affect constricted, mood dysthymic. Thoughts linear, logical, no signs of hallucinations or delusions. Client Response/Progress/Benefit: []Pt engaged in session AEB pt listening attentively to peers and providing input. Attentive during psychoeducation on 4 zones of regulation. Pt able to identify feelings and behaviors for each zone.? Pt identified coping skills one can use to support self in each zone. Pt stated belief that pt is in the blue zone today as pt feels apathetic, sad, and distant today, but ?not to the point where I?m totally in blue.? Pt reports spending time with her mother and watching a uplifting show will help pt get out of the blue zone today. Benefited from increased education on zones of regulation or stages of alertness for emotions and healthy coping skills to use for each zone. Pt will continue IOP tx to increase mood stability, reduce negative thinking, and maintain healthy habits. ? Narrative Note: []
--- NOTE | 2022-03-07 16:51 | BH.MDN ---
Multi-Disciplinary Note - Note 60-min Individual Date: 03/07/22
--- NOTE | 2022-03-08 09:00 | BH.SGPN.GN ---
Behaviors/Verbalizations/Mental Status: []Pt eye contact fair, casually dressed, motor activity appropriate, speech normal rate and tone, mood dysthymic and anxious, constricted affect, thoughts linear and intact, no evidence of delusions or hallucinations. Client Response/Progress/Benefit: [] Client responded well to session as evidenced by listening attentively to others and sharing thoughts and feelings. Client reported she had a rough weekend. Stated she got drunk on Monday night at a hangout with some friends and spiraled out. Client expressed feeling guilty for drinking and saying unkind things to her boyfriend. Client reported mental health positive as stopping self yesterday from beating self up all day yesterday. client stated able to talk things out with her boyfriend yesterday. Seemed to benefit from support from peers. Client to continue IOP to stabilize mood, increase consistent use of healthy coping and prevent decompensation.
--- NOTE | 2022-03-09 11:15 | BH.SGPN.GN ---
Behaviors/Verbalizations/Mental Status: []Pt alert and oriented, casually dressed and groomed. Eye contact good. Motor activity appropriate. Speech within normal limits. Affect constricted, mood anxious. Thoughts linear, logical, no signs of hallucinations or delusions Client Response/Progress/Benefit: []Pt responded well to session, engaged in the experiential activity and attentive throughout group processing. Pt reported fear of failure has kept pt from picking a career, becoming close with people, exercising, and going on ?study travels.? ?Pt completed fear of failure worksheet and was able to identify thoughts and behaviors that reinforce personal fear of failure including low self-esteem. Trauma, avoidance, and negative thinking. ?Pt participated in small group discussion regarding strategies to overcome fear of failure. Identified wanting to work on increasing distress tolerance skills and working on small steps. Appeared to benefit from increased knowledge of strategies to combat fear of failure and gaining self-awareness. Pt will continue IOP tx to prevent decompensation, reduce negative core beliefs, and improve use of healthy coping skills. ? Narrative Note: []
--- NOTE | 2022-03-09 11:45 | PCM.BH.PN_ITS ---
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 The patient is seen in follow-up at the [facility] behavioral health IOP progr am. I last saw the patient 2 weeks ago and at that time she was started on lithium. She obtained her baseline labs and they were all normal and these were discussed with the patient today. The patient is tolerating the lithium carbonate well and takes it at bedtime. She did not take the lithium at first Monday she came to [facility] which was a least 3 days a week. She states that she has taken it every day for the last 3 days. Her depression is a little worse since her grief for her brother has exacerbated recently. Her grief over her brothers that she feels was the reason she drank alcohol over the weekend and shared a bottle of hard liquor with a friend. She feels her anxiety has improved due to the BuSpar. She denies any other substance use. She admits that she obsessively reads reviews that people right online about medications and then expects to get those side effects. She denies passive thoughts of , suicidal ideation, homicidal ideation, plan for suicide, hallucinations, delusions or symptoms of kindra. Current Psychiatric Medications: [] Lamictal 150 mg p.o. daily; lithium carbonate ER 300 mg p.o. nightly (started 2 weeks ago but unsure of compliance) Mental Status Examination: [] Patient is a 26-year-old female who appears normal for stated age and is casually dressed and groomed with good hygiene. She is alert and oriented to person place and time and ambulatory with a normal gait. She is cooperative during the interview and has no psychomotor agitation or retardation. Eye contact is good and speech is normal rate and rhythm and fluent with no pressure. Mood is anxious and mildly depressed. Affect is mildly constricted to full. Thought process is goal-directed and organized. Thought content: There is no evidence of passive thoughts of , suicidal ideation, homicidal ideation, hallucinations, delusions or kindra. Reality testing is intact. Intelligence is above average. Judgment is intact. Insight is fair to good. Impulsivity is moderate to high. Diagnoses: [] 1. Bipolar 1 disorder, most recent episode depressed, moderate (F31.32) 2. Anxiety disorder, unspecified 3. Alcohol use disorder 4. Remote history of disordered eating 5. Methamphetamine and crack substance abuse order, full remission for 9 months 6. Primary support issues 7. Bereavement Plan: [] The patient will continue the IOP program at [facility] as the structure, support, education and group therapy will hopefully prevent worsening of the patient's symptoms that might require admission to the hospital. She felt safe during the interview and if it anytime she does not feel safe she will let us know or go to the emergency room. The risk, options, possible complications and side effects of the medications were discussed in detail with the patient again and she understands and accepts these. The patient's renal panel, TSH and baseline lithium labs were all normal. The patient request to increase her Lamictal to 200 mg as she feels she did better on this and has this dose at home. In addition she agrees to take her lithium every night as directed. After 1 week of doing this she will increase the lithium carbonate ER to 600 mg p.o. nightly. After she has taken the higher dose of lithium consistently for 6 days we will check a trough lithium level which I will order next time I see her. Discussed with the patient the need to remain sober and the importance of this. She understands that if she hangs out with friends that drink and use drugs will be very difficult for her to remain sober. I will see the patient in follow-up in 2 weeks and the patient will continue to follow-up with any outpatient providers.
--- NOTE | 2022-03-11 11:10 | BH.SGPN.GN ---
Behaviors/Verbalizations/Mental Status: []Pt alert and oriented, casually dressed and groomed. Eye contact fair. Motor activity appropriate. Speech within normal limits. Affect constricted, mood dysthymic. Thoughts linear, logical, no signs of hallucinations or delusions. Client Response/Progress/Benefit: []Pt was an active participant in group discussion. Attentive during psychoeducation on the Zones of Change which included the comfort zone, learning zone, and danger zone. Pt along with peers participated in interactive discussion regarding behaviors, thoughts, and feelings associated with each zone. Participated in group activity in which they developed a plan to take action on something they wished to change. Pt chose to take action on intrusive thoughts in which pt identified a SMART goal to do one mindfulness activity a day in the evening. Identified supports that pt needed as creating a mindfulness area in her house, journal, get a speaker, and essential oils. Benefited from increased self-aware of zones of change and developing an action plan. Will continue in IOP to stabilize moods, increase consistent use of skill, and prevent decompensation.
--- NOTE | 2022-03-11 16:52 | BH.MDN ---
Multi-Disciplinary Note - Note 45-min Individual Date: 03/11/22
--- NOTE | 2022-03-15 08:51 | BH.MDN ---
Multi-Disciplinary Note - Note 60-min Individual Time Started:: 11:05 Date: 03/14/22 Purpose of session/treatment goals addressed:: Purpose of session was to address goals 1 and 2 from MTP. Eye Contact:: Fair Motor Activity:: Appropriate Appearance:: Disheveled Speech:: Appropriate Mood:: Anxious, Depressed Affect:: Constricted Thoughts:: Linear, Logical, No evidence of hallucinations/delusions noted Staff Interventions:: thought challenging, CBT techniques, mindfulness skills, strengths perspective, goal setting Client Response:: Client reported she is struggling with lack of motivation lately, especially with not getting her clay caster complete. Client Time Stopped:: 12:06
== END 2022-03-14 23:59 ==
LOC: BHIOP 09:00
PROVIDERS: PCP Family Medicine; Referring Provider Psychiatry & Neurology Psychiatry; Visit Provider Psychiatry & Neurology Psychiatry
DX: F31.32 Bipolar disorder, current episode depressed, moderate (principal); F41.9 Anxiety disorder, unspecified; F50.9 Eating disorder, unspecified; F10.91 Alcohol use, unspecified, in remission; F14.11 Cocaine abuse, in remission; F11.11 Opioid abuse, in remission; Z63.4 Disappearance and death of family member
CPT/HCPCS: S9480; 90834; 90837; 90853

== ENCOUNTER → 2022-02-24 | Outpatient (CLI) | payer OTHER, SELFPAY ==
[2022-02-24 13:55] LABS: Albumin, Serum 3.9 g/dL (3.2-5.0); BUN 10 mg/dL (7-18); BUN/Creat Ratio 14.5 RATIO (10-20); Calcium,Total 9.4 mg/dL (8.5-10.1); Chloride 107 mmol/L (98-107); Creatinine, Serum 0.69 mg/dL (0.55-1.02); EST Glomerular Filtration Rate 109 mL/min (>60); Est Glom Filt Rate - Afr Amer 132 mL/min (>60); Glucose 85 mg/dL (74-106); Phosphorus 3.2 mg/dL (2.5-4.9); Potassium 3.9 mmol/L (3.5-5.1); Sodium Level 138 mmol/L (136-145); Thyroid Stim Hormone (TSH) 1.04 uIU/mL (0.358-3.74)
--- NOTE | 2022-03-08 11:20 | BH.SGPN.GN ---
Behaviors/Verbalizations/Mental Status: []Client alert and oriented, casually dressed and groomed. Eye contact fair to good. Motor activity appropriate. Speech within normal limits. Affect congruent, mood anxious and dysthymic. Thoughts linear, logical, no signs of hallucinations or delusions. Client Response/Progress/Benefit: []Client responded well to session, attentive AEB participating in activity and providing input in group. Did well to process activity and work with group to relate the strategies used to overcome barriers in the activity to managing change in own life. Client shared a change they would like to make is to ?start thinking about, listing, and noting actions over ideas?. Client stated currently being in the contemplation stage. Identified goal to work on to achieve change behavior would be to take time each day to work on listing things out. Appeared to benefit from identifying a small goal to work towards. Client will continue IOP tx to reduce presenting depression and anxiety, improve consistent application of healthy coping skills, and improve daily functioning. Narrative Note: []
== END | disposition home or self-care (01) ==
PROVIDERS: PCP Family Medicine; Referring Provider Psychiatry & Neurology Psychiatry; Visit Provider Psychiatry & Neurology Psychiatry
DX: Z79.899 Other long term (current) drug therapy (principal)
CPT/HCPCS: 36415; 80069; 84443

== ENCOUNTER 2022-03-15 08:07 | Outpatient (RCR) | payer OTHER, SELFPAY ==
[2022-03-15 00:37] VITALS: BP 138/80; PULSE 63
--- NOTE | 2022-03-21 10:12 | BH.SGPN.GN ---
Behaviors/Verbalizations/Mental Status: []Client alert and oriented, casually dressed and groomed. Eye contact good. Motor activity appropriate. Speech within normal limits. Affect congruent, mood depressed and anxious. Thoughts linear, logical, no signs of hallucinations or delusions. Client Response/Progress/Benefit: []Client was an active participant in group discussions and activity. Attentive during psychoeducation. Client, along with peers, was able to identify several negatives on the picture given to the group. Client and peers also identified positives in the picture and made the connection that finding positives is much more difficult. Client shared that she found a sort of comfort in the chaos of the photo they were observing. Interactive discussion on the definition of perspective, how perspective is formed, and why perspective is important in treatment. Client discussed that the information we absorb, i.e. advertisements, can influence perspective. Client along with group members came up with benefits of having a hopeful perspective for their mental health, which included feeling more encouraged, increased willingness to open up to peers, and reduced stress. Will continue in IOP to improve healthy coping repertoire, increase overall functioning, and improve sx management. Narrative Note: []
--- NOTE | 2022-03-22 11:10 | BH.SGPN.GN ---
Behaviors/Verbalizations/Mental Status: []Client alert and oriented, casually dressed, hygiene appeared to be tended to. Eye contact good. Motor activity appropriate. Speech within normal limits. Affect constricted. Mood dysthymic. Thoughts linear, logical, no signs of hallucinations or delusions. Client Response/Progress/Benefit: []Client engaged participant AEB client taking notes during discussion and listened attentively to peers. Participated in group discussion on the various areas of self-care, benefits, and types of self-care activities for each area. Client completed worksheet in which client identified current self-care practices and what self-care activities client wants to start using. Client able to complete provided worksheet in which she identified self-care ideas for each area of self-care. Client identified for spiritual self-care she wants to start doing yoga and meditation. Client to continue IOP to consistently apply healthy coping skills, improve confidence, and prevent decompensation.
--- NOTE | 2022-03-24 09:00 | BH.SGPN.GN ---
Behaviors/Verbalizations/Mental Status: [] Eye contact is good. Motor activity is appropriate. Appearance is casual. Speech is Appropriate. Mood is depressed. Affect is congruent. Thoughts are linear and logical. No evidence of psychosis. Reviewed daily check in sheet and no reports of suicidal ideations or intent. Client Response/Progress/Benefit: [] Pt participated when prompted. Attentive. Emotion for today is ?anxious?. Daily symptom tracker notes 3/5 for anxiety, depression, and irritability. Mental health wins include ?allowing myself time to step away and process my thoughts before reacting?. She shared a strategy and plan that she developed and followed through with yesterday which was very beneficial during an argument with her partner. Benefited from group support, encouragement, and feedback. Will continue in IOP to maintain safety, increase healthy coping, and stabilize mood. Narrative Note: []
--- NOTE | 2022-03-29 09:05 | BH.SGPN.GN ---
Behaviors/Verbalizations/Mental Status: [] Eye contact is good. Motor activity is appropriate. Appearance is casual. Speech is Appropriate. Mood is euthymic. Affect is full. Thoughts are linear and logical. No evidence of psychosis. Reviewed daily check in sheet and no reports of suicidal ideations or intent. Client Response/Progress/Benefit: [] Pt participated when prompted. Daily symptom tracker notes 3/5 for depression and 3/5 for agitation. Emotion for today is ?bladimir?. States ?I?m doing things to get outside of my head?. She shared some recent additions to her coping skills and self-care. She has started to ?draw? again which is very rewarding to her. She is anxious and stressed however as her partner is ?getting off probation? and she is worried that he will relapse which will impact their relationship significantly. She is utilizing some acceptance of things she can?t control as well as challenging and reframing her negative thoughts. Benefited from group support, encouragement, and feedback. Will continue in IOP to stabilize mood and prevent decompensation. Narrative Note: []
--- NOTE | 2022-03-29 10:15 | BH.SGPN.GN ---
Behaviors/Verbalizations/Mental Status: [] Eye contact is fair. Motor activity is appropriate. Appearance is casual. Speech is Appropriate. Mood is dysthymic. Affect is constricted. Thoughts are linear and logical. No evidence of psychosis. Client Response/Progress/Benefit: [] Client was an attentive during interactive group discussions by writing notes and sharing when prompted. Attentive during psychoeducation on the six types of boundaries (physical, emotional, intellectual, sexual, time, and material) AEB note-taking. Along with peers contributed to interactive discussion on defining what a boundary is in mental health. Client along with peers identified challenges to setting boundaries which included: fear of other's response, guilt, fear of losing relationships, and lack of confidence. Worked with peers to identify the benefits to setting boundaries such as increased control, benefit to mental health, and increased confidence. Client reported fear of abandonment and comparing self to others are barriers that have kept her from setting boundaries. Will continue in IOP to improve mood stability, challenge distorted thoughts, increase confidence, and prevent decompensation.
--- NOTE | 2022-03-29 11:18 | BH.SGPN.GN ---
Behaviors/Verbalizations/Mental Status: []Client alert and oriented, casually dressed and groomed. Eye contact good. Motor activity appropriate. Speech within normal limits. Affect congruent, mood anxious, dysthymic. Thoughts linear, logical, no signs of hallucinations or delusions. Client Response/Progress/Benefit: []Client responded well to session AEB listening attentively to peers and providing input when prompted. Client engaged and providing insight during psychoeducation on the different boundary styles. Noted she struggles with with others if she?s feeling insecure or invalidated or judged, noting this is especially true of the relationship with her father. Client worked in a small group to identify strategies for healthy boundary setting. Client identified wanting to work on reminding herself of the long-term benefits of establishing and maintaining healthier boundaries. Progress noted in self-report of improved insight and ability to identify healthier coping skills, though continues to struggle with consistent application. Will continue IOP tx to prevent decompensation, continue to improve overall functioning, and promote continued application of healthy coping skills. Narrative Note: []
--- NOTE | 2022-04-04 10:05 | BH.SGPN.GN ---
Behaviors/Verbalizations/Mental Status: [] Eye contact is good. Motor activity is appropriate. Appearance is casual. Speech is Appropriate. Mood is euthymic. Affect is full. Thoughts are linear and logical. No evidence of psychosis. Client Response/Progress/Benefit: [] Pt participated at times during the group discussions. Participated during interactive discussion on defining conflict (internal/external) and possible benefits to conflict. Attentive during psychoeducation on conflict styles and engaged during small group activity in which peers identified the benefits and consequences to each conflict style. Pt identified that her primary conflict style is avoidant and accommodating. Shared that it is very exhausting to accommodate everyone. Benefited from increase awareness of the impact of conflict styles in mental health. Will continue in IOP to maintain gains and prevent decompensation. Narrative Note: []
--- NOTE | 2022-04-04 11:05 | BH.SGPN.GN ---
Behaviors/Verbalizations/Mental Status: []Pt alert and oriented, casually dressed and groomed. Eye contact good. Motor activity appropriate. Speech within normal limits. Affect congruent, mood dysthymic. Thoughts linear, logical, no signs of hallucinations or delusions. Client Response/Progress/Benefit: []Pt engaged in session AEB contributing to discussion and engaging in activity. Pt did well to review current conflict style and its impact on mental health. Attentive and taking notes during discussion on strategies for more effectively managing conflict in personal life.? Pt participated in activity and did well to be assertive and collaborating. Pt given handout on fair fighting rules and identified that they want to work on taking a step back to manage emotions before addressing conflict. Appeared to benefit from gaining strategies to help pt better manage conflict. Will continue IOP tx to reinforce healthy coping skills and establish aftercare. Narrative Note: []
--- NOTE | 2022-04-04 12:12 | PCM.BH.PN ---
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 I last saw the patient about 1 month ago and at that time the Lamictal was increased to 200 mg and her lithium was increased to 600 mg p.o. nightly after she stayed on it regularly for a week. She has been on the 600 mg dose for 2 2 to 3 weeks now. The patient states that she feels much better in the morning lately and feels more stable mood walker. It is easier to get up in the morning. She is still somewhat depressed but feels much more in control and less likely to be impulsive. According to the staff she has been engaged in the IOP program and shown improvement. She denies any alcohol use since before I last saw her. She has no significant side effects on lithium but feels that maybe it makes her feel slightly cloudy mentally. She denies any other side effects. She denies passive thoughts of , suicidal ideation, homicidal ideation, plan for suicide, hallucinations, delusions or symptoms of kindra. Current Psychiatric Medications: [] Lamictal 200 mg p.o. nightly; lithium carbonate ER 600 mg p.o. nightly (on this dose for 2 to 3 weeks now and has been compliant) Mental Status Examination: [] Patient is a 26-year-old female who appears normal for stated age and is casually dressed and groomed with good hygiene. She is ambulatory with a normal gait and is cooperative during the interview. She has no psychomotor agitation or retardation. Eye contact is good and speech is normal rate and rhythm and fluent with no pressure. Mood is mildly depressed. Affect is full and normal. Thought process is goal-directed and organized. Thought content: The patient likes how she feels on the lithium and feels more stable. There is no evidence of passive thoughts of , suicidal ideation, homicidal ideation, hallucinations, delusions or symptoms or kindra. Reality testing is intact. Intelligence is above average. Judgment is intact. Insight is good. Impulsivity is moderate to high. Diagnoses: [] 1. Bipolar 1 disorder, most recent episode depressed, moderate (F31.32) 2. Anxiety disorder, unspecified 3. Alcohol use disorder (sober since 6 weeks ago) 4. Remote history of disordered eating 5. Methamphetamine and crack substance abuse order in full remission for 9 months 6. Primary support issues and bereavement Plan: [] The patient will continue the IOP program at [facility] as the structure, support, education and group therapy will hopefully prevent worsening of the patient's symptoms. She felt safe during the interview and if it anytime she does not feel safe she will let us know or go to the emergency room. The risk, options, possible complications and side effects of the medications were again discussed in detail with the patient and she understands and accepts these. Her lithium level obtained today was 0.4 ng/dL. The patient understands that this dose may not prevent an episode of kindra but she also understands that she could increase it if she feels she is becoming manic by communicating with her provider at that time. Discussed the option of a medicine like Latuda for bipolar depression but the patient wishes to wait and think about this. The patient understands that she will need a renal panel in 3 months and then every 6 months she will need to check renal function and TSH levels along with the lithium level. She understands lithium can interfere with thyroid function and can cause damage to the kidneys by a number of mechanisms. She understands the importance of remaining sober from all drugs and alcohol. She will continue to follow-up with her outpatient providers and I will see the patient in follow-up while she is in the IOP program.
--- NOTE | 2022-04-05 09:10 | BH.SGPN.GN ---
Behaviors/Verbalizations/Mental Status: [] Eye contact is good. Motor activity is appropriate. Appearance is casual. Speech is Appropriate. Mood is anxious. Affect is congruent. Thoughts are linear and logical. No evidence of psychosis. Reviewed daily check in sheet and no reports of suicidal ideations or intent. Client Response/Progress/Benefit: [] Pt participated at times during the group discussions. Attentive. Shared with the group that today is her last day in the IOP program. The group topic that she found most helpful was on ?perspectives?. ?It helped show me how our view of things can be influenced by our emotions?. States that she is glad that she ?stuck it out with the program? and shared her progress. Upcoming holiday is stressful as it?s the first since the loss of her brother. She is ?looking forward to it? however is also anxious. Briefly shared her aftercare plans which include counseling and aftercare group. Benefited from group support, encouragement, and feedback. Will be discharged from [facility] today. Narrative Note: []
--- NOTE | 2022-04-05 10:10 | BH.SGPN.GN ---
Behaviors/Verbalizations/Mental Status: []Eye contact is good. Motor activity is appropriate. Appearance is casual. Speech is Appropriate. Mood is dysthymic. Affect is congruent. Thoughts are linear and logical. No evidence of psychosis. Client Response/Progress/Benefit: []Pt participated at times during the group discussions. Attentive during psychoeducation AEB note-taking and providing input throughout. Participated in interactive discussion amongst peers on the definition and examples of crisis, sharing that ?if I can?t control a situation, then I try to control other aspects of life that I can?. Engaged in conversations as peers identified unhealthy responses to crisis which included; substance use, avoidance, isolation, sleeping, risky behaviors, denial, etc. Pt identified their own warning signs to crisis which included ?isolation, canceling plans, and increased risk taking?. Benefited from increased awareness of crisis and personal warning signs. Will d/c from IOP on this date and continue with outpatient counseling to maintain gains and prevent decompensation. Narrative Note: []
--- NOTE | 2022-04-05 11:10 | BH.SGPN.GN ---
Behaviors/Verbalizations/Mental Status: []Client alert and oriented, casually dressed and groomed. Eye contact good. Motor activity appropriate. Speech within normal limits. Affect congruent. Mood euthymic. Thoughts linear, logical, no signs of hallucinations or delusions. Client Response/Progress/Benefit: []Client responded well to session as evidenced by client listening attentively to others and providing strategies during discussion. Client identified her warning signs for crisis and gained further awareness of earliest warning signs. Client created a crisis action plan to help client better manage warning signs for crisis. Client?s action plan for negative thought patterns included: affirmations, thought challenging, calling her mom, mindfulness, thought challenging, and no more than 30 minutes of worrying. Client appeared to benefit from creating a crisis action plan and increasing self-awareness. Client has made significant treatment progress and will discharge from [facility] today.
== END 2022-04-05 12:32 | disposition home or self-care (01) ==
LOC: BHIOP 08:07
PROVIDERS: PCP Family Medicine; Referring Provider Psychiatry & Neurology Psychiatry; Visit Provider Psychiatry & Neurology Psychiatry
DX: F31.32 Bipolar disorder, current episode depressed, moderate (principal); F41.9 Anxiety disorder, unspecified; F50.9 Eating disorder, unspecified; F10.91 Alcohol use, unspecified, in remission; F14.11 Cocaine abuse, in remission; F11.11 Opioid abuse, in remission; Z63.4 Disappearance and death of family member
CPT/HCPCS: S9480; 90832; 90834; 90837; 90853

== ENCOUNTER 2022-04-04 09:14 | Outpatient (CLI) | payer OTHER, SELFPAY | END 2022-04-04 23:59 | disposition home or self-care (01) | LOC: LAB 09:17 | PROVIDERS: PCP Family Medicine; Referring Provider Psychiatry & Neurology Psychiatry; Visit Provider Psychiatry & Neurology Psychiatry | DX: F31.32 Bipolar disorder, current episode depressed, moderate (principal); Z79.899 Other long term (current) drug therapy | CPT/HCPCS: 36415; 80178 ==